=== PATIENT | male | born 1940 | race Hispanic/Latino ===

== ENCOUNTER 2021-05-24 16:43 | Emergency (ER) | payer MEDICARE ==
--- NOTE | 2021-05-24 17:42 | Emergency Department Report ---
ED General Adult HPI - General Chief complaint: Fall Stated complaint: HEAD LACERATION PUI?: No Time Seen by Provider: 05/24/21 17:36 Source: patient Mode of arrival: Stretcher Limitations: No Limitations - History of Present Illness Initial comments: Patient is a 80-year-old male that presents emergency room with EMS for a fall at his [facility]. Patient fell ground-level fall on landed on his forehead. Patient normally does not walk around but the patient was try to get up and fell. Patient is currently on Plavix per EMS. Patient has advanced dementia and per the [facility] and EMS the patient is still at baseline. Per EMS, the patient did not lose consciousness. Patient is oriented x1. -: Sudden Location: head Consistency: constant Improves with: none Worsens with: none Associated Symptoms: denies other symptoms - Related Data Allergies Allergy/AdvReac Type Severity Reaction Status Date / Time No Known Allergies Allergy Verified 05/24/21 17:10 ED Review of Systems ROS: Stated complaint: HEAD LACERATION Other details as noted in HPI Comment: Unobtainable due to pts medical conditions ED Past Medical Hx - Past Medical History Previous Medical History?: Yes Hx Diabetes: Yes Additional medical history: alzheimers, stroke - Surgical History Past Surgical History?: No - Social History Smoking Status: Never Smoker Substance Use Type: None ED Physical Exam - General Limitations: No Limitations General appearance: alert, in no apparent distress - Head Head exam: Present: normocephalic, other (Frontal hematoma noted.) - Eye Eye exam: Present: normal appearance - ENT ENT exam: Present: mucous membranes moist - Neck Neck exam: Present: normal inspection - Respiratory Respiratory exam: Present: normal lung sounds bilaterally. Absent: respiratory distress - Cardiovascular Cardiovascular Exam: Present: regular rate, normal rhythm. Absent: systolic murmur, diastolic murmur, rubs, gallop - GI/Abdominal GI/Abdominal exam: Present: soft, normal bowel sounds - Rectal Rectal exam: Present: deferred - Extremities Exam Extremities exam: Present: normal inspection - Back Exam Back exam: Present: normal inspection - Neurological Exam Neurological exam: Present: alert, altered - Skin Skin exam: Present: warm, dry, normal color, abrasion, ecchymosis (Scalp he matoma and abrasion noted to the frontal area.). Absent: rash ED Course Vital Signs 05/24/21 17:10 Temperature 98.3 F Pulse Rate 71 Respiratory 16 Rate Blood Pressure 115/59 O2 Sat by Pulse 97 Oximetry - Reevaluation(s) Reevaluation #1: Patient is stable for discharge. Patient's labs are negative. Patient will be discharged back to his [facility]. 05/24/21 23:22 ED Medical Decision Making - Lab Data Result diagrams: 05/24/21 18:11 05/24/21 18:11 - Radiology Data Radiology results: report reviewed CT HEAD WITHOUT CONTRAST INDICATION / CLINICAL INFORMATION: fall injury. TECHNIQUE: All CT scans at this location are performed using CT dose reduction for ALARA by means of automated exposure control. COMPARISON: None available. FINDINGS: HEMORRHAGE: No evidence of intracranial hemorrhage or extra-axial fluid collection. EXTRA-AXIAL SPACES: Cortical sulci and sylvian fissures are enlarged reflecting a degree of parenchymal volume loss which is within normal limits for the patient's age of 80 years. Basilar cisterns have an unremarkable appearance. VENTRICULAR SYSTEM: The third and lateral ventricles are enlarged reflecting pr esence of age related parenchymal volume loss. Prominent temporal lobe atrophy is noted bilaterally. CEREBRAL PARENCHYMA: Periventricular and deep white matter lucency is observed. This is probably secondary to microvascular ischemic change. There is no indication of recent infarction. No areas of encephalomalacia are identified. MIDLINE SHIFT OR HERNIATION: There is no mass effect. CEREBELLUM / BRAINSTEM: Brainstem has an unremarkable appearance. Age related cerebellar atrophy is noted. MIDLINE STRUCTURES:Pituitary gland has an unremarkable appearance. No abnormalities are seen in the pineal region. INTRACRANIAL VESSELS:Calcified atherosclerotic plaque is present along the course of the cavernous segments of both internal carotid arteries. Similar findings are seen at the distal vertebral arteries. CRANIOCERVICAL JUNCTION:No significant abnormality. ORBITS: visualized portions of the orbits have an unremarkable appearance. SOFT TISSUES of HEAD: A scalp hematoma is demonstrated to involve the forehead to the left the midline. CALVARIUM: Evaluation of bone windows reveals no abnormalities. PARANASAL SINUSES / MASTOID AIR CELLS: Paranasal sinuses are free from inflammatory mucosal disease. Mastoid air cells are normally pneumatized. ADDITIONAL FINDINGS: None. IMPRESSION: 1. No acute intracranial abnormality. 2. Prominent parenchymal volume loss with disproportionate temporal lobe atrophy. 3. Left forehead scalp hematoma. - Medical Decision Making Patient is a 80-year-old male who presents emergency room for ground-level fall. Patient hit his head on the floor. Patient presents emergency room via EMS. Patient found to have a hematoma to his frontal region. Patient has advanced dementia and is believed to be at his baseline per the EMS and the [facility] staff. Patient not answer very many questions. Patient had labs done which were essentially unremarkable. Patient is taking Plavix at his [facility]. Patient had a CT scan of the head and neck. The CT scan of the head and neck were negative for acute findings. No intracranial hemorrhage noted. Patient is stable to return to his nursing facility. Patient will be discharged back to his nursing facility. - Differential Diagnosis Fall, ICH, abrasion, head injury, dementia Critical care attestation.: If time is entered above; I have spent that time in minutes in the direct care of this critically ill patient, excluding procedure time. ED Disposition Clinical Impression: Fall Qualifiers: Encounter type: initial encounter Qualified Code(s): W19.XXXA - Unspecified fall, initial encounter Head injury Qualifiers: Encounter type: initial encounter Qualified Code(s): S09.90XA - Unspecified injury of head, initial encounter Hematoma of frontal scalp Qualifiers: Encounter type: initial encounter Qualified Code(s): S00.03XA - Contusion of scalp, initial encounter Altered mental status Qualifiers: Altered mental status type: unspecified Qualified Code(s): R41.82 - Altered mental status, unspecified Disposition: 03 SNF FACILITY Is pt being admited?: No Does the pt Need Aspirin: No Condition: Stable Instructions: Facial or Scalp Contusion Additional Instructions: Patient to follow-up with primary care in 2 to 3 days. Patient to return to nursing facility. Patient to rest. Patient to increase water. Patient to take Tylenol as needed for pain.. Patient to return to the ER if condition worsens, changes or new symptoms arise. Referrals: MICHAEL MACIAS MD [Primary Care Provider] - 2-3 Days Time of Disposition: 23:30
[2021-05-24 18:53] LABS: Alanine Aminotransferase 30 units/L (7-56); Albumin 3.2 g/dL (3.9-5); BUN/Creatinine Ratio 18; Blood Urea Nitrogen 16 mg/dL (9-20); Calcium 8.8 mg/dL (8.4-10.2); Hemolysis Index 12
--- NOTE | 2021-05-24 19:22 | Cat Scan Report ---
CT HEAD WITHOUT CONTRAST INDICATION / CLINICAL INFORMATION: fall injury. TECHNIQUE: All CT scans at this location are performed using CT dose reduction for ALARA by means of automated e xposure control. COMPARISON: None available. FINDINGS: HEMORRHAGE: No evidence of intracranial hemorrhage or extra-axial fluid collection. EXTRA-AXIAL SPACES: Cortical sulci and sylvian fissures are enlarged reflecting a degree of parenchym al volume loss which is within normal limits for the patient's age of 80 years. Basilar cisterns have an unremarkable appearance. VENTRICULAR SYSTEM: The third and lateral ventricles are enlarged reflecting presence of age related parenchymal volume loss. Prominent temporal lobe atrophy is noted bilaterally. CEREBRAL PARENCHYMA: Periventricular and deep white matter lucency is observed. This is probably seco ndary to microvascular ischemic change. There is no indication of recent infarction. No areas of ence phalomalacia are identified. MIDLINE SHIFT OR HERNIATION: There is no mass effect. CEREBELLUM / BRAINSTEM: Brainstem has an unremarkable appearance. Age related cerebellar atrophy is n oted. MIDLINE STRUCTURES:Pituitary gland has an unremarkable appearance. No abnormalities are seen in the p ineal region. INTRACRANIAL VESSELS:Calcified atherosclerotic plaque is present along the course of the cavernous se gments of both internal carotid arteries. Similar findings are seen at the distal vertebral arteries. CRANIOCERVICAL JUNCTION:No significant abnormality. ORBITS: visualized portions of the orbits have an unremarkable appearance. SOFT TISSUES of HEAD: A scalp hematoma is demonstrated to involve the forehead to the left the midlin e. CALVARIUM: Evaluation of bone windows reveals no abnormalities. PARANASAL SINUSES / MASTOID AIR CELLS: Paranasal sinuses are free from inflammatory mucosal disease. Mastoid air cells are normally pneumatized. ADDITIONAL FINDINGS: None. IMPRESSION: 1. No acute intracranial abnormality. 2. Prominent parenchymal volume loss with disproportionate temporal lobe atrophy. 3. Left forehead scalp hematoma. Signer Name: Pete Awad MD Signed: 05/24/2021 7:17 PM Workstation Name: [id number]
--- NOTE | 2021-05-24 19:24 | Cat Scan Report ---
CT CERVICAL SPINE WITHOUT CONTRAST INDICATION / CLINICAL INFORMATION: fall injury. TECHNIQUE: Axial CT images were obtained through the cervical spine. Sagittal and coronal reformatted images wer e produced. All CT scans at this location are performed using CT dose reduction for ALARA by means of automated exposure control. COMPARISON: None available. FINDINGS: POSTOPERATIVE CHANGE:none ALIGNMENT: No significant abnormality. VERTEBRAE: No indication of fracture or bone destruction. DISC SPACES: Loss of disc height is a prominent finding at the C5-6 and C6-7 levels. DEGENERATIVE CHANGES: Anterior and posterior osteophyte formation are observed at the C5-6 and C6-7 l evels. Widespread facet and uncovertebral arthropathy is noted. Multifocal neuroforaminal stenosis is observed. Central spinal canal is adequate in size. CRANIOCERVICAL JUNCTION:No significant abnormality. SPINAL CANAL: Central spinal canal is adequately maintained throughout. PARASPINAL SOFT TISSUES: No significant abnormality. ADDITIONAL FINDINGS: None. LUNG APICES: No significant abnormality of visualized lungs. IMPRESSION: 1. No indication of fracture or traumatic subluxation. 2. Widespread cervical spondylosis. Signer Name: Pete Awad MD Signed: 05/24/2021 7:20 PM Workstation Name: [id number]
[2021-05-24 19:26] LABS: Hematocrit 33.8 % (35.5-45.6); Hemoglobin 11.4 gm/dl (11.8-15.2); Mean Corpuscular HGB Conc 34 % (32-34); Mean Corpuscular Volume 99 fl (84-94); Platelet Count 179 K/mm3 (140-440); Red Blood Count 3.43 M/mm3 (3.65-5.03); Red Cell Distribution Width 14.7 % (13.2-15.2)
[2021-05-24 19:37] LABS: INR 0.97 (0.87-1.13)
[2021-05-24 19:38] LABS: Partial Thromboplastin Time 22.5 Sec. (24.2-36.6)
[2021-05-25 08:43] VITALS: BP 139/75
== END 2021-05-25 17:19 ==
LOC: ED 16:43
DX: S00.03XA Contusion of scalp, initial encounter (principal); S09.90XA Unspecified injury of head, initial encounter; R41.82 Altered mental status, unspecified; E11.9 Type 2 diabetes mellitus without complications; W18.39XA Other fall on same level, initial encounter; Y93.89 Activity, other specified; Y92.89 Other specified places as the place of occurrence of the external cause; Y99.8 Other external cause status
CPT/HCPCS: 36415; 70450; 72125; 80053; 85027; 85610; 85730; 99284